=== PATIENT | female | born 1975 | race Caucasian/White ===

== ENCOUNTER 2017-03-31 19:31 | Emergency (ER) | payer OTHER ==
[~2017-03-31] VITALS: Ht 162.6 cm; Wt 85.9 kg
[~2017-03-31 19:31] MED LIST: ALBUTEROL SULF8.5 GM IH; Motrin PO; PREDNISONE20 MG PO; PREFERA-OB P1 TABLET PO; TESSALON PERLE100 MG PO; Vicodin,Norco 5/325 PO; ZITHROMAX Z-PA250 MG PO
[2017-04-01 00:23] VITALS: BP 121/69
== END 2017-04-01 00:36 | disposition home or self-care (01) ==
LOC: EME 19:31
DX: K59.00 Constipation, unspecified (principal); M54.5 Low back pain; M79.606 Pain in leg, unspecified; Z87.891 Personal history of nicotine dependence
CPT/HCPCS: 74000; 81003; 84703; 99281; 99284; J2060